=== PATIENT | female | born 1940 | race Caucasian/White ===

== ENCOUNTER 2022-11-20 09:43 | Outpatient (CLI) | payer MEDICARE, BC | END 2022-11-20 09:44 | disposition home or self-care (01) | LOC: CSHWCC 09:43 | PROVIDERS: ATTEND Nurse Practitioner Family | DX: L97.412 Non-pressure chronic ulcer of right heel and midfoot with fat layer exposed (principal); R60.0 Localized edema | CPT/HCPCS: 11042 ==

== ENCOUNTER 2022-12-04 08:57 | Outpatient (CLI) | payer MEDICARE, BC | END 2022-12-04 08:58 | disposition home or self-care (01) | LOC: CSHWCC 08:57 | PROVIDERS: ATTEND Nurse Practitioner Family | DX: L97.412 Non-pressure chronic ulcer of right heel and midfoot with fat layer exposed (principal); R60.0 Localized edema | CPT/HCPCS: 29581 ==

== ENCOUNTER 2022-12-11 13:04 | Outpatient (CLI) | payer MEDICARE, BC | END 2022-12-11 13:05 | disposition home or self-care (01) | LOC: CSHWCC 13:04 | PROVIDERS: ATTEND Nurse Practitioner Family | DX: L97.412 Non-pressure chronic ulcer of right heel and midfoot with fat layer exposed (principal) | CPT/HCPCS: 29581 ==

== ENCOUNTER 2022-12-25 09:24 | Outpatient (CLI) | payer MEDICARE, BC | END 2022-12-25 09:25 | disposition home or self-care (01) | LOC: CSHWCC 09:24 | PROVIDERS: ATTEND Nurse Practitioner Family | DX: L97.412 Non-pressure chronic ulcer of right heel and midfoot with fat layer exposed (principal); R60.0 Localized edema ==

== ENCOUNTER 2023-01-15 10:03 | Outpatient (CLI) | payer MEDICARE, BC | END 2023-01-15 10:04 | disposition home or self-care (01) | LOC: CSHWCC 10:03 | PROVIDERS: ATTEND Nurse Practitioner Family | DX: L97.412 Non-pressure chronic ulcer of right heel and midfoot with fat layer exposed (principal); R60.0 Localized edema | CPT/HCPCS: 11042 ==

== ENCOUNTER 2023-02-24 10:45 | Outpatient (CLI) | payer MEDICARE, BC | END 2023-02-24 10:46 | disposition home or self-care (01) | LOC: CSHWCC 10:45 | PROVIDERS: ATTEND Nurse Practitioner Family | DX: L97.412 Non-pressure chronic ulcer of right heel and midfoot with fat layer exposed (principal); R60.0 Localized edema ==

== ENCOUNTER 2023-03-26 09:41 | Outpatient (CLI) | payer MEDICARE, BC | END 2023-03-26 09:42 | disposition home or self-care (01) | LOC: CSHWCC 09:41 | PROVIDERS: ATTEND Nurse Practitioner Family | DX: R60.0 Localized edema (principal); L97.412 Non-pressure chronic ulcer of right heel and midfoot with fat layer exposed | CPT/HCPCS: 11042; 29581 ==

== ENCOUNTER 2023-04-23 10:06 | Outpatient (CLI) | payer MEDICARE, BC | END 2023-04-23 10:07 | disposition home or self-care (01) | LOC: CSHWCC 10:06 | PROVIDERS: ATTEND Nurse Practitioner Family | DX: L97.412 Non-pressure chronic ulcer of right heel and midfoot with fat layer exposed (principal); R60.0 Localized edema | CPT/HCPCS: 11042; 29581; 99212; G0463 ==

== ENCOUNTER 2023-05-14 10:15 | Outpatient (CLI) | payer MEDICARE, BC | END 2023-05-14 10:16 | disposition home or self-care (01) | LOC: CSHWCC 10:15 | PROVIDERS: ATTEND Nurse Practitioner Family | DX: L97.412 Non-pressure chronic ulcer of right heel and midfoot with fat layer exposed (principal); R60.0 Localized edema | CPT/HCPCS: 29581 ==

== ENCOUNTER 2023-06-11 09:48 | Outpatient (CLI) | payer MEDICARE, BC | END 2023-06-11 09:49 | disposition home or self-care (01) | LOC: CSHWCC 09:48 | PROVIDERS: ATTEND Nurse Practitioner Family | DX: L97.412 Non-pressure chronic ulcer of right heel and midfoot with fat layer exposed (principal); R60.0 Localized edema | CPT/HCPCS: 29581; 97597 ==

== ENCOUNTER 2023-07-09 10:25 | Outpatient (CLI) | payer MEDICARE, BC | END 2023-07-09 10:26 | disposition home or self-care (01) | LOC: CSHWCC 10:25 | PROVIDERS: ATTEND Nurse Practitioner Family | DX: S91.201D Unspecified open wound of right great toe with damage to nail, subsequent encounter (principal); L97.412 Non-pressure chronic ulcer of right heel and midfoot with fat layer exposed; R60.0 Localized edema | CPT/HCPCS: 11042; 87070; 87077; 87186; 87205; 97139; G0463; 99213 ==

== ENCOUNTER 2023-07-30 10:05 | Outpatient (CLI) | payer MEDICARE, BC | END 2023-07-30 10:06 | disposition home or self-care (01) | LOC: CSHWCC 10:05 | PROVIDERS: ATTEND Nurse Practitioner Family | DX: L97.412 Non-pressure chronic ulcer of right heel and midfoot with fat layer exposed (principal); S91.201D Unspecified open wound of right great toe with damage to nail, subsequent encounter; R60.0 Localized edema | CPT/HCPCS: 97139; G0463; 99211 ==